=== PATIENT | male | born 1970 | race Caucasian/White ===

== ENCOUNTER 2023-07-15 15:01 | Outpatient (CLI) | payer OTHER, SELFPAY ==
--- NOTE | 2023-07-15 15:14 | XRR_ITS ---
PROCEDURE INFORMATION: Exam: XR Abdomen Exam date and time: 07/15/2023 3:21 PM Age: 53 years old Clinical indication: Other: Pain in the prostate area; Prior surgery; Surgery date: 6+ months; Surgery type: Abdominal mesh; Additional info: HX of nephrolithiasis TECHNIQUE: Imaging protocol: Radiologic exam of the abdomen. Views: Frontal supine view of the abdomen. 1 View. COMPARISON: No relevant prior studies available. FINDINGS: Gastrointestinal tract: Nonspecific bowel gas pattern without bowel dilatation or distension. Scattered gas and stool in the colon. Intraperitoneal space: No indication of free air. A few nonspecific pelvic calcifications, likely phleboliths. Bones/joints: Visualized osseous structures show no acute abnormality. XR/XR KUB [id number] IMPRESSION: Nonspecific nonobstructive bowel gas pattern. No acute radiographic findings.
[2023-07-15 16:00] LABS: Basophils # 0.1 10^3/uL (0.0-0.1); Basophils % 0.9 %; Eosinophils # 0.2 10^3/uL (0.0-0.8); Eosinophils % 2.1 %; Hematocrit 47.6 % (37-53); Lymphocytes # 2.6 10^3/uL (0.8-4.8); Lymphocytes % 31.8 %; Mean Corpuscular HGB Conc 36.3 g/dL (30-55); Mean Corpuscular Hemoglobin 30.4 pg (27-33); Mean Corpuscular Volume 83.5 fl (82-101); Mean Platelet Volume 9.7 fL (7.4-10.4); Monocytes # 0.7 10^3/uL (0.2-0.9); Monocytes % 8.2 %; Neutrophils # 4.61 10^3/uL (1.8-7.7); Neutrophils % 56.9 %; Nucleated Red Blood Cells % 0 %; Platelet Count 261 10^3/cmm (157-399); Red Cell Distribution Width 11.9 % (12.1-15.1); White Blood Count 8.09 10^3/uL (3.29-11.43)
[2023-07-15 16:46] LABS: Alanine Aminotransferase 34 U/L (0-41); Albumin Level 4.1 g/dL (3.5-5.2); Alkaline Phosphatase 78 U/L (40-130); Aspartate Amino Transferase 30 U/L (0-40); Estradiol 25.5 pg/mL (7.63-42.6); Follicle Stimulating Hormone 6.5 mIU/mL (1.5-12.4); Globulin 2.9 g/dL (1.3-4.6); Luteinizing Hormone 6.5 mIU/mL (1.7-8.6); Prolactin 11.07 ng/mL (4.0-15.2); Total Bilirubin 0.3 mg/dL (0.15-1.2)
[2023-07-17 01:45] LABS: Sex Hormone Binding Globulin 18 nmol/L (10-50); Testosterone Total Males IA 172 ng/dL (250-827)
== END 2023-07-15 15:02 | disposition home or self-care (01) ==
LOC: LAB 15:06
PROVIDERS: Family Provider Internal Medicine; Visit Provider Nurse Practitioner Family
DX: N52.9 Male erectile dysfunction, unspecified (principal); R68.82 Decreased libido; Z87.442 Personal history of urinary calculi; R10.9 Unspecified abdominal pain
CPT/HCPCS: 36415; 74018; 80076; 82040; 82670; 83001; 83002; 84146; 84270; 84403; 85025

== ENCOUNTER 2023-07-18 09:00 | Outpatient (CLI) | payer OTHER, SELFPAY ==
--- NOTE | 2023-07-18 09:24 | US_ITS ---
WS: [id number] TESTICULAR ULTRASOUND HISTORY: LEFT TESTICULAR PAIN COMPARISON: None available. TECHNIQUE: Real-time and color Doppler imaging or utilized to perform a testicular ultrasound. Right testicle: 2.4 cm x 3.7 cm x 3.4 cm. Normal size and echogenicity. No mass or torsion. Normal color Doppler is present throughout. Systolic and diastolic velocities are both present. No significant hydrocele. Right epididymis: Normal size epididymis. No color Doppler was performed. Left testicle: 2.3 cm x 4.2 cm x 2.7 cm. Normal size and echogenicity. No mass or torsion. Normal color Doppler is present throughout. Systolic and diastolic velocities are both present. No significant hydrocele. Left epididymis: Normal epididymis with no increased vascularity. Left-sided varicocele. US/US scrotum [id number] IMPRESSION: 1. No testicular mass or torsion. 2. Left-sided varicocele.
== END 2023-07-18 09:01 | disposition home or self-care (01) ==
LOC: RAD 09:00
PROVIDERS: Family Provider Internal Medicine; Visit Provider Nurse Practitioner Family
DX: I86.1 Scrotal varices (principal); N50.812 Left testicular pain
CPT/HCPCS: 76870

== ENCOUNTER 2023-09-29 12:07 | Outpatient (CLI) | payer OTHER, SELFPAY | END 2023-09-29 12:08 | disposition home or self-care (01) | PROVIDERS: Family Provider Internal Medicine; Visit Provider Nurse Practitioner Family | DX: R79.89 Other specified abnormal findings of blood chemistry (principal) | CPT/HCPCS: 36415; 82040; 84270; 84403 ==

== ENCOUNTER 2024-11-05 15:35 | Outpatient (CLI) | payer OTHER, SELFPAY ==
--- NOTE | 2024-11-05 15:54 | XRR_ITS ---
PROCEDURE INFORMATION: Exam: XR Abdomen Exam date and time: 11/05/2024 4:09 PM Age: 54 years old Clinical indication: Condition or disease; Kidney or ureter condition; Other: Nephrolithiasis; Prior surgery; Surgery date: 6+ months; Surgery type: Mesh in abdomen; X3 years ago kidney stones TECHNIQUE: Imaging protocol: Radiologic exam of the abdomen. Views: Frontal supine view of the abdomen. 1 View. COMPARISON: CR XR KUB [id number] 07/15/2023 3:21 PM FINDINGS: Gastrointestinal tract: A small amount fecal material in a nondistended colon. No appreciable small bowel gas or small distension. Abdomen and pelvis: Psoas outlines intact. No organomegaly. Bones/joints: Mild degenerative changes lower thoracic and lower lumbar spine, and SI joints. Enthesophytes lateral iliac crests. XR/XR KUB [id number] IMPRESSION: Unremarkable abdomen.
[2024-11-05 16:38] LABS: Prostate Specific Antigen 0.363 ng/mL (0-4)
== END 2024-11-05 15:36 | disposition home or self-care (01) ==
PROVIDERS: Family Provider Internal Medicine; Visit Provider Urology
DX: N20.0 Calculus of kidney (principal); Z12.5 Encounter for screening for malignant neoplasm of prostate; E29.1 Testicular hypofunction; M47.894 Other spondylosis, thoracic region; M47.896 Other spondylosis, lumbar region; M46.1 Sacroiliitis, not elsewhere classified; M76.21 Iliac crest spur, right hip; M76.22 Iliac crest spur, left hip
CPT/HCPCS: 74018; 84153; 84403

== ENCOUNTER 2024-12-29 16:39 | Outpatient (CLI) | payer OTHER, SELFPAY ==
[2024-12-29 17:09] LABS: Hematocrit 44.9 % (37-53); Hemoglobin 16.20 g/dL (11.27-16.99); Mean Corpuscular HGB Conc 36.1 g/dL (30-55); Mean Corpuscular Hemoglobin 29.9 pg (27-33); Mean Corpuscular Volume 83.0 fl (82-101); Nucleated Red Blood Cells % 0 %; Platelet Count 262 10^3/cmm (157-399); Red Blood Count 5.41 10^6/uL (3.85-5.65); White Blood Count 5.93 10^3/uL (3.29-11.43)
[2024-12-29 18:49] LABS: Alanine Aminotransferase 31 U/L (0-41); Albumin Level 4.1 g/dL (3.5-5.2); Alkaline Phosphatase 73 U/L (40-130); Aspartate Amino Transferase 27 U/L (0-40); Follicle Stimulating Hormone 6.6 mIU/mL (1.5-12.4); Globulin 2.6 g/dL (1.3-4.6); Total Protein 6.7 g/dL (6.6-8.7)
== END 2024-12-29 16:40 | disposition home or self-care (01) ==
PROVIDERS: PCP Electrodiagnostic Medicine; Visit Provider Urology
DX: E29.1 Testicular hypofunction (principal)
CPT/HCPCS: 36415; 80076; 83001; 83002; 84403; 85025

== ENCOUNTER 2024-12-31 11:42 | Outpatient (CLI) | payer OTHER, SELFPAY ==
--- NOTE | 2024-12-31 11:53 | ECG_ITS ---
[facility] Date: 2024-12-31 Pat Name: Yonatan Nguyen Department: Room: Gender: Male [employer] Physical Therapist: : 1970 Requested By: Ld Aguirre Order Number: [id number] Garcia MD: Jose Ramirez M.D. Interpretive Statements Findings: The patient exercised on the treadmill via the [place] protocol for total of 9 minutes and 30 seconds reaching 154 bpm heart rate which was 92% of the maximum predicted heart rate. The patient achieved 13.5 METS The patient's resting blood pressure was 127/86 mmHg with a heart rate of 91 bpm. The resting EKG showed normal sinus rhythm with low voltage, nonspecific T wave flattening and poor R wave progression. The maximum blood pressure was 193/85 mmHg. There were no ST or T wave changes with exercise. No exercise-induced chest pain. Impression: 1. Above average exercise capacity for age 2. Normal heart rate and blood pressure response to exercise 3. No exercise-induced ischemia or arrhythmias Electronically Signed On 12-31-2024 16:24:22 CDT by Jose Ramirez M.D. [email or web address] [id number]
[2024-12-31 12:26] VITALS: BP 163/79; PULSE 98
== END 2024-12-31 11:43 | disposition home or self-care (01) ==
PROVIDERS: PCP Electrodiagnostic Medicine; Visit Provider Electrodiagnostic Medicine
DX: R07.9 Chest pain, unspecified (principal)
CPT/HCPCS: 93017